=== PATIENT | female | born 1950 | race Caucasian/White ===

== ENCOUNTER 2020-06-03 07:21 | Day surgery (SDC) | payer OTHER ==
[~2020-06-03] VITALS: Ht 162.6 cm; Wt 114.0 kg
[~2020-06-03 07:21] MED LIST: ALBU90OI INH; Prinivil10 MG PO; QVAR REDIHALE10.6 G2 INH
[2020-06-03] MEDS ORDERED: Aspir 8181 MG PO (07:44)
--- NOTE | 2020-06-03 07:51 | NUR ---
06/03/20 0751 Cristina Odom 0739 TETRACAINE GTT TO RIGHT EYE PER PRE-OP ORDERS 0744 PLEDGET PLACED IN RIGHT EYE PER DR. CHOI'S ORDERS.
== END 2020-06-03 09:09 | disposition home or self-care (01) ==
LOC: ORSCSDS 07:21
PROVIDERS: Ophthalmology
PROC: 08RJ3JZ Replacement of Right Lens with Synthetic Substitute, Percutaneous Approach (ICD-10-PCS; principal; 2020-06-03 08:30)
DX: H25.11 Age-related nuclear cataract, right eye (principal); I10 Essential (primary) hypertension; E66.01 Morbid (severe) obesity due to excess calories; Z68.41 Body mass index [BMI] 40.0-44.9, adult; Z79.899 Other long term (current) drug therapy
CPT/HCPCS: A9270; J2001; J2250; J3010; J3301; J7040; V2632

== ENCOUNTER 2021-10-26 07:40 | Day surgery (SDC) | payer OTHER ==
[~2021-10-26] VITALS: Ht 162.6 cm; Wt 85.9 kg
[~2021-10-26 07:40] MED LIST changes: +Aspir 8181 MG PO
--- NOTE | 2021-10-26 08:04 | NUR ---
History, Chart, Medications and Allergies reviewed before start of procedure. Patient confirms NPO status and agrees with scheduled surgery. Lungs clear T/O to Auscultation.
[2021-10-26] MEDS ORDERED: LORA10ER PO (08:08)
--- NOTE | 2021-10-26 08:28 | NUR ---
PATIENT REPORTS PUTTING HER GLASSES IN HER BELONGING BAG.
--- NOTE | 2021-10-26 08:28 | NUR ---
KNEE HIGH JOSH HOSE AND CALF PAS APPLIED TO LLE.
--- NOTE | 2021-10-26 09:16 | NUR ---
Accepted patint and assumed care up to bathroom given oral meds and dr alonso was at bedside and marked site. patient states glasses are in her personal belongings bag from home in her shoe.
--- NOTE | 2021-10-26 09:17 | NUR ---
igor blakely take to pacu
--- NOTE | 2021-10-26 19:35 | NUR ---
SHIFT SUMMARY WAS DROWSY INITIALLY POST OP, BUT HAS CLEARED. HAD x 1 EPISODE OF EMESIS < 100. POSSIBLY DUE TO OXY w/ ONLY JELLO & CRACKER SON STOMACH. ANTIEMEITIC & DILAUDID GIVEN FOR N/V/PAIN. AFTER NAP, FELT SIGNIFICANTLY BETTER & WAS ABLE TO GET UP TO CHIAR, AMBULATE TO BATHROOM, & REPORTS NO PAIN.
[2021-10-27 04:32] LABS: BASOPHILS ABSOLUTE AUTO 0.02 K/mm3 (0.00-0.23); BASOPHILS PERCENT AUTO 0 % (0-2); EOSINOPHILS ABSOLUTE AUTO 0.09 K/mm3 (0.00-0.68); EOSINOPHILS PERCENT AUTO 1 % (0-6); Hematocrit 38.6 % (33.0-51.0); Hemoglobin 12.5 g/dL (11.5-16.0); IMMATURE GRAN ABSOLUTE AUTO 0.04 K/mm3 (0.00-0.10); IMMATURE GRAN PERCENT AUTO 0 % (0-1); LYMPHOCYTES ABSOLUTE AUTO 1.19 K/mm3 (0.84-5.20); LYMPHOCYTES PERCENT AUTO 12 % (21-46); MONOCYTES ABSOLUTE AUTO 0.76 K/mm3 (0.16-1.47); MONOCYTES PERCENT AUTO 8 % (4-13); Mean Corpuscular HGB 29.9 pg (26.0-34.0); Mean Corpuscular HGB Conc 32.4 g/dL (31.5-36.5); Mean Corpuscular Volume 92 fL (80-100); Mean Platelet Volume 9.7 fL (9.1-12.4); NEUTROPHILS ABSOLUTE AUTO 7.84 K/mm3 (1.96-9.15); NEUTROPHILS PERCENT AUTO 79 % (41-73); Platelet Count 175 K/mm3 (150-400); RDW Coefficient Variation 12.6 % (11.7-14.2); RDW Standard Deviation 42.9 fL (35.1-46.3); Red Blood Cell Count 4.18 M/mm3 (3.80-5.20); White Blood Cell Count 9.94 K/mm3 (4.00-11.30)
[2021-10-27 04:49] LABS: Bun/Creatinine Ratio 18.2 (12.0-20.0); Calcium, Blood 8.6 mg/dL (8.5-10.1); Creatinine, Blood 0.66 mg/dL (0.40-1.00); Potassium, Blood 3.9 mmol/L (3.5-5.5)
--- NOTE | 2021-10-27 05:09 | NUR ---
SHIFT SUMMARY A/O X4- POD1 R TOTAL KNEE REPAIR- BARRERA WRAP IN PLACE, C/D/I. PT AMBULATING WELL W/ FWW, GB, AND SBA. TOLERATING PO INTAKE AND VOIDING WELL. PT REPORTS PAIN AND TREATED PER EMAR. VITAL SIGNS STABLE. WILL CONTINUE TO MONITOR AND REPORT TO ONCOMING RN.
[2021-10-27] MEDS ORDERED: Percocet 5-3251 EACH PO (11:42)
--- NOTE | 2021-10-27 11:50 | NUR ---
IV D/C'D LFA INTACT. SITE CLEAR.
--- NOTE | 2021-10-27 14:30 | NUR ---
DISCHARGE PT CLEARED THERAPY THIS MORNING BUT DIDN'T HAVE TRANSPORTATION UNTIL 1400. PAIN WELL CONTROLLED. EATING, DRINKING, & VOIDING WELL. DRSGS, SCRIPT, & POLAR PACK SENT w/ PT. ESCORTED OUT VIA W/C.
== END 2021-10-27 14:31 | disposition home or self-care (01) ==
LOC: ORSCMMR 07:40 → ORD 08:15 → ORSCMMR 09:15 → SURS 12:53 → ORSCMMR 10-27 14:31
PROVIDERS: Orthopaedic Surgery
PROC: 8E0YXBZ Computer Assisted Procedure of Lower Extremity (ICD-10-PCS; principal; 2021-10-26 09:15)
PROC: 8E0Y0CZ Robotic Assisted Procedure of Lower Extremity, Open Approach (ICD-10-PCS; principal; 2021-10-26 09:15)
PROC: 0SRC0JA Replacement of Right Knee Joint with Synthetic Substitute, Uncemented, Open Approach (ICD-10-PCS; principal; 2021-10-26 09:15)
DX: M17.11 Unilateral primary osteoarthritis, right knee (principal); I10 Essential (primary) hypertension; G47.33 Obstructive sleep apnea (adult) (pediatric); E66.9 Obesity, unspecified; Z68.32 Body mass index [BMI] 32.0-32.9, adult; Z79.899 Other long term (current) drug therapy; Z98.84 Bariatric surgery status
CPT/HCPCS: 27447; 20985; S2900; 36415; 73560-RT; 80048; 85025; 94760; 97110; 97116; 97161; A9270; C1776; J0171; J0690; J0735; J1170; J1885; J2250; J2405; J2704; J2795; J3010; J7120

== ENCOUNTER 2025-03-05 07:24 | Day surgery (SDC) | payer OTHER ==
[~2025-03-05] VITALS: Ht 162.6 cm; Wt 89.0 kg
[~2025-03-05 07:24] MED LIST changes: +Balanced Salt Epinephrine Irrigation Solution 500 mL IR SCH; +LORA10ER PO; +Moxifloxacin HCL 0.5 MG/0.1 ML 0.4MLSYR LEFTEYE SCH; +Ondansetron 4 MG SoluTab MM PRN; +PHENYLEPHRINE\\TROPICAMIDE\\TETRACAINE OPHTHALMIC DILATING SOLN LEFTEYE PRN; +Percocet 5-3251 EACH PO; +Povidone-Iodine 450 DROP/30 ML Solution LEFTEYE SCH; +Povidone-Iodine 450 DROP/30 ML Solution ONE; +Tetracaine HCl/Pf 0.5% Opth Soln 4 ml ONE
--- NOTE | 2025-03-05 08:34 | NUR ---
03/05/25 0834 Klaudia Motta: 0823 JOSE: 0824
--- NOTE | 2025-03-05 09:07 | NUR ---
03/05/25 0907 Klaudia Randle HR:58 BP:125/63 SPO2:100% ON 10L BLOW BY O2 NO SIGNS OR SYMPTOMS OF DISTRESS, PT TOLERATED WELL
[2025-03-05 09:29] VITALS: BP 126/84
== END 2025-03-05 09:29 | disposition home or self-care (01) ==
LOC: ORSCSDS 07:24
PROVIDERS: Student in an Organized Health Care Education/Training Program
PROC: 08RK3JZ Replacement of Left Lens with Synthetic Substitute, Percutaneous Approach (ICD-10-PCS; principal; 2025-03-05 09:00)
DX: H25.812 Combined forms of age-related cataract, left eye (principal)
CPT/HCPCS: A9270; V2632